=== PATIENT | male | born 1960 | race Caucasian/White ===

== ENCOUNTER → 2016-06-09 | Outpatient (REF) | payer OTHER ==
[2016-06-09 14:21] LABS: ALBUMIN 4.2 GM/DL (3.2-5.2); ALBUMIN/GLOBULIN RATIO 1.24 (1.00-1.93); ALKALINE PHOSPHATASE 84 U/L (45-117); ALT/SGPT 25 U/L (12-78); ANION GAP 10 MEQ/L (8-16); AST/SGOT 21 U/L (15-37); BILIRUBIN,TOTAL 0.5 MG/DL (0.2-1.0); BLOOD UREA NITROGEN 13 MG/DL (7-18); CALCIUM LEVEL 9.3 MG/DL (8.5-10.1); CARBON DIOXIDE LEVEL 25 MEQ/L (21-32); CHLORIDE LEVEL 104 MEQ/L (98-107); CREATININE FOR GFR 1.13 MG/DL (0.70-1.30); GLOMERULAR FILTRATION RATE > 60.0 (>56); GLUCOSE, FASTING 159 MG/DL (70-105); POTASSIUM SERUM 4.3 MEQ/L (3.5-5.1); SODIUM LEVEL 139 MEQ/L (136-145); TOTAL PROTEIN 7.6 GM/DL (6.4-8.2)
[2016-06-11 00:07] LABS: %CD3+CD4+CD8+ 0.9 % (Not Estab.); %CD3+CD4+CD8- 29.5 % (Not Estab.); %CD3+CD4-CD8+ 48.8 % (Not Estab.); %CD3+CD4-CD8- 0.6 % (Not Estab.); ABS CD3+CD4+CD8+ 28 /uL (Not Estab.); ABS CD3+CD4+CD8- 915 /uL (Not Estab.); ABS CD3+CD4-CD8+ 1513 /uL (Not Estab.); ABS CD3+CD4-CD8- 19 /uL (Not Estab.); Eosinophils 1 % (.); HCT 42.4 % (37.5-51.0); HGB 14.7 g/dL (12.6-17.7); Monocytes 9 % (.); Neutrophils 58 % (.)
== END ==
LOC: M SFHCPLAZ 11:32
PROVIDERS: ATTEND Internal Medicine Infectious Disease
DX: B20 Human immunodeficiency virus [HIV] disease (principal); Z11.3 Encounter for screening for infections with a predominantly sexual mode of transmission; E11.9 Type 2 diabetes mellitus without complications

== ENCOUNTER → 2016-09-08 | Outpatient (REF) | payer OTHER ==
[2016-09-08 12:07] LABS: ANION GAP 9 MEQ/L (8-16); BLOOD UREA NITROGEN 13 MG/DL (7-18); CALCIUM LEVEL 8.8 MG/DL (8.5-10.1); CARBON DIOXIDE LEVEL 26 MEQ/L (21-32); CHLORIDE LEVEL 102 MEQ/L (98-107); CREATININE FOR GFR 0.93 MG/DL (0.70-1.30); GLOMERULAR FILTRATION RATE > 60.0 (>56); GLUCOSE, FASTING 187 MG/DL (70-105); POTASSIUM SERUM 4.4 MEQ/L (3.5-5.1); SODIUM LEVEL 137 MEQ/L (136-145)
== END ==
LOC: M SFHCPLAZ 09:16
PROVIDERS: ATTEND Internal Medicine Infectious Disease
DX: E11.9 Type 2 diabetes mellitus without complications (principal)

== ENCOUNTER → 2017-03-15 | Outpatient (REF) | payer OTHER ==
[2017-03-15 13:44] LABS: ALBUMIN 4.1 GM/DL (3.2-5.2); ALKALINE PHOSPHATASE 89 U/L (45-117); ALT/SGPT 24 U/L (12-78); ANION GAP 5 MEQ/L (8-16); AST/SGOT 18 U/L (15-37); BILIRUBIN,TOTAL 0.4 MG/DL (0.2-1.0); BLOOD UREA NITROGEN 13 MG/DL (7-18); CALCIUM LEVEL 9.2 MG/DL (8.5-10.1); CARBON DIOXIDE LEVEL 28 MEQ/L (21-32); CHLORIDE LEVEL 102 MEQ/L (98-107); CHOLESTEROL LEVEL 128 MG/DL (<200); CREATININE FOR GFR 0.93 MG/DL (0.70-1.30); GLOMERULAR FILTRATION RATE > 60.0 (>56); GLUCOSE, FASTING 180 MG/DL (70-105); POTASSIUM SERUM 4.4 MEQ/L (3.5-5.1); SODIUM LEVEL 135 MEQ/L (136-145); TOTAL PROTEIN 8.2 GM/DL (6.4-8.2); TRIGLYCERIDES LEVEL 75 MG/DL (<150)
[2017-03-17 08:09] LABS: Eosinophils 1 % (Not Estab.); HCT 44.8 % (37.5-51.0); HEMATOLOGY COMMENTS Note: (.); Lyme Disease IgG/IgM Antibodie <0.91 ISR (0.00-0.90); Lyme Disease IgM Ab Quantitati <0.80 index (0.00-0.79); Monocytes 8 % (Not Estab.); Neutrophils 63 % (Not Estab.)
== END ==
LOC: M SFHCPLAZ 09:33
PROVIDERS: ATTEND Internal Medicine Infectious Disease
DX: B20 Human immunodeficiency virus [HIV] disease (principal); E11.9 Type 2 diabetes mellitus without complications; S80.861S Insect bite (nonvenomous), right lower leg, sequela

== ENCOUNTER → 2017-09-20 | Outpatient (REF) | payer OTHER ==
[2017-09-20 13:27] LABS: APPEARANCE, URINE CLEAR (CLEAR); BACTERIA, URINE AUTO NEGATIVE (NEGATIVE); BILIRUBIN, URINE AUTO NEGATIVE (NEGATIVE); BLOOD, URINE BLOOD NEGATIVE (NEGATIVE); COLOR, URINE STRAW (YELLOW); GLUCOSE, URINE (UA) AUTO NEGATIVE (NEGATIVE); KETONE, URINE AUTO NEGATIVE (NEGATIVE); LEUKOCYTE ESTERASE, URINE AUTO NEGATIVE (NEGATIVE); MUCUS, URINE SMALL (NEGATIVE); NITRITE, URINE AUTO NEGATIVE (NEGATIVE); PROTEIN, URINE AUTO NEGATIVE (NEGATIVE); RBC, URINE AUTO 4 /HPF (0-3); SPECIFIC GRAVITY URINE AUTO 1.006 (1.002-1.035); SQUAMOUS EPITHELIAL CELL UR AU 0 /HPF (0-6); UROBILINOGEN, URINE AUTO 0.2 mg/dL (0.0-2.0); WBC, URINE AUTO 1 /HPF (0-3)
[2017-09-20 14:27] LABS: ERYTHROCYTE SEDIMENTATION RATE 3 mm/hr (0-20)
[2017-09-20 15:33] LABS: ESTIMATED AVERAGE GLUCOSE 166 MG/DL (60-110); HEMOGLOBIN A1c 7.4 %
[2017-09-20 15:47] LABS: HEPATITIS C VIRUS ABY INDEX < 0.0 INDEX (<0.8)
[2017-09-20 16:02] LABS: ALBUMIN 4.2 GM/DL (3.2-5.2); ALBUMIN/GLOBULIN RATIO 0.98 (1.00-1.93); ALKALINE PHOSPHATASE 77 U/L (45-117); ALT/SGPT 23 U/L (12-78); ANION GAP 7 MEQ/L (8-16); AST/SGOT 20 U/L (7-37); BILIRUBIN,TOTAL 0.3 MG/DL (0.2-1.0); BLOOD UREA NITROGEN 17 MG/DL (7-18); C REACTIVE PROTEIN QUANTITATIV < 0.30 MG/DL (0.00-0.30); CALCIUM LEVEL 9.1 MG/DL (8.5-10.1); CARBON DIOXIDE LEVEL 24 MEQ/L (21-32); CHLORIDE LEVEL 107 MEQ/L (98-107); GLOMERULAR FILTRATION RATE > 60.0 (>56); GLUCOSE, FASTING 130 MG/DL (70-100); POTASSIUM SERUM 4.7 MEQ/L (3.5-5.1); RHEUMATOID FACTOR QUANT < 10.0 IU/ML (<15.0); SODIUM LEVEL 138 MEQ/L (136-145); TOTAL PROTEIN 8.5 GM/DL (6.4-8.2)
[2017-09-20 16:19] LABS: CHLAMYDIA DNA AMPLIFICATION NEGATIVE (NEGATIVE); GC DNA AMPLIFICATION NEGATIVE (NEGATIVE)
[2017-09-22 14:16] LABS: ANA (HEP2) Negative (.); HIV-1 RNA PCR QUANT 2 LC550285 <20 copies/mL (.)
[2017-09-23 00:08] LABS: QUANTIFERON GOLD TB Negative (Negative); TB Test (QFT) Antigen 0.03 IU/mL (.); TB Test (QFT) Antigen Minus Ni 0.01 IU/mL (.); TB Test (QFT) Nil 0.02 IU/mL (.)
== END ==
LOC: M SFHCPLAZ 11:00
DX: B20 Human immunodeficiency virus [HIV] disease (principal); E11.9 Type 2 diabetes mellitus without complications; M25.50 Pain in unspecified joint

== ENCOUNTER → 2017-11-24 | Outpatient (CLI) | payer OTHER | LOC: M RAD 07:54 | DX: I71.4 Abdominal aortic aneurysm, without rupture (principal) | CPT/HCPCS: 76775 ==

== ENCOUNTER → 2018-03-24 | Outpatient (REF) | payer OTHER ==
[2018-03-24 13:45] LABS: ALBUMIN 3.9 GM/DL (3.2-5.2); ALBUMIN/GLOBULIN RATIO 1.03 (1.00-1.93); ALKALINE PHOSPHATASE 76 U/L (45-117); ALT/SGPT 20 U/L (12-78); ANION GAP 10 MEQ/L (8-16); AST/SGOT 16 U/L (7-37); BILIRUBIN,TOTAL 0.3 MG/DL (0.2-1.0); BLOOD UREA NITROGEN 16 MG/DL (7-18); CALCIUM LEVEL 8.5 MG/DL (8.5-10.1); CARBON DIOXIDE LEVEL 24 MEQ/L (21-32); CHLORIDE LEVEL 103 MEQ/L (98-107); CHOLESTEROL LEVEL 108 MG/DL (<200); CHOLESTEROL RISK RATIO 2.571 (<5); CREATININE FOR GFR 1.01 MG/DL (0.70-1.30); GLOMERULAR FILTRATION RATE > 60.0 (>56); GLUCOSE, FASTING 175 MG/DL (70-100); HDL CHOLESTEROL 42 MG/DL (>40); LDL CHOLESTEROL 50 MG/DL (<100); NON-HDL-C 66 MG/DL; POTASSIUM SERUM 4.9 MEQ/L (3.5-5.1); SODIUM LEVEL 137 MEQ/L (136-145); TOTAL PROTEIN 7.7 GM/DL (6.4-8.2); TRIGLYCERIDES LEVEL 80 MG/DL (<150)
[2018-03-24 13:50] LABS: ESTIMATED AVERAGE GLUCOSE 148 MG/DL (60-110); HEMOGLOBIN A1c 6.8 %
[2018-03-24 14:21] LABS: MALB URINE SIEMENS 11.1 MG/L
[2018-03-24 14:32] LABS: MAU/CREAT RATIO 6.5 MCG/MG (0.0-30.0)
[2018-03-29 00:08] LABS: %CD4 Pos Lymphs 30.4 % (30.8-58.5); ABS Basophils 0.1 x10E3/uL (0.0-0.2); ABS Eosinophils 0.1 x10E3/uL (0.0-0.4); ABS Lymphs 2.6 x10E3/uL (0.7-3.1); ABS Monocytes 0.8 x10E3/uL (0.1-0.9); ABS Neutophils 5.9 x10E3/uL (1.4-7.0); Abs CD4 Helper 790 /uL (359-1519); Abs CD8 Suppres 1196 /uL (109-897); CD4/CD8 Ratio 0.66 (0.92-3.72); Eosinophils 1 % (Not Estab.); HCT 42.3 % (37.5-51.0); HGB 14.1 g/dL (13.0-17.7); HIV-1 RNA PCR QUANT 2 LC550285 <20 copies/mL (.); Immature Grans 0 % (Not Estab.); Lyme Disease IgG/IgM Antibodie <0.91 ISR (0.00-0.90); Lyme Disease IgM Ab Quantitati <0.80 index (0.00-0.79); Lymphocytes 27 % (Not Estab.); MCH 30.6 pg (26.6-33.0); MCHC 33.3 g/dL (31.5-35.7); MCV 92 fL (79-97); Monocytes 9 % (Not Estab.); Neutrophils 62 % (Not Estab.); Platelets 145 x10E3/uL (150-379); RBC 4.61 x10E6/uL (4.14-5.80); WBC 9.4 x10E3/uL (3.4-10.8)
== END ==
LOC: M SFHCPLAZ 10:12
DX: B20 Human immunodeficiency virus [HIV] disease (principal); E11.9 Type 2 diabetes mellitus without complications; E78.00 Pure hypercholesterolemia, unspecified; M25.552 Pain in left hip

== ENCOUNTER → 2018-08-02 | Outpatient (REF) | payer OTHER ==
[2018-08-02 12:37] LABS: APPEARANCE, URINE CLEAR (CLEAR); BACTERIA, URINE AUTO NEGATIVE (NEGATIVE); BILIRUBIN, URINE AUTO NEGATIVE (NEGATIVE); BLOOD, URINE BLOOD NEGATIVE (NEGATIVE); COLOR, URINE YELLOW (YELLOW); GLUCOSE, URINE (UA) AUTO 1+ mg/dL (NEGATIVE); KETONE, URINE AUTO NEGATIVE (NEGATIVE); LEUKOCYTE ESTERASE, URINE AUTO NEGATIVE (NEGATIVE); MUCUS, URINE SMALL (NEGATIVE); NITRITE, URINE AUTO NEGATIVE (NEGATIVE); PROTEIN, URINE AUTO NEGATIVE (NEGATIVE); RBC, URINE AUTO 1 /HPF (0-3); SPECIFIC GRAVITY URINE AUTO 1.009 (1.002-1.035); SQUAMOUS EPITHELIAL CELL UR AU 0 /HPF (0-6); UROBILINOGEN, URINE AUTO 0.2 mg/dL (0.0-2.0); WBC, URINE AUTO 0 /HPF (0-3)
[2018-08-02 13:13] LABS: AMPHETAMINES URINE REFLEX NEGATIVE (NEGATIVE); BARBITURATES URINE REFLEX NEGATIVE (NEGATIVE); BENZODIAZEPINES URINE REFLEX NEGATIVE (NEGATIVE); COCAINE METABOLITE URINE REFLE NEGATIVE (NEGATIVE); CREATININE, URINE 56.6 MG/DL; MALB URINE SIEMENS 5.2 MG/L; MAU/CREAT RATIO 9.1 MCG/MG (0.0-30.0); METHADONE URINE REFLEX NEGATIVE (NEGATIVE); OPIATES URINE REFLEX NEGATIVE (NEGATIVE); PHENCYCLIDINE URINE REFLEX NEGATIVE (NEGATIVE)
[2018-08-02 13:23] LABS: CANNABINOIDS URINE REFLEX PENDING CONFIRMATION (NEGATIVE)
[2018-08-02 13:46] LABS: ALBUMIN 4.3 GM/DL (3.2-5.2); ALT/SGPT 33 U/L (12-78); BILIRUBIN,TOTAL 0.3 MG/DL (0.2-1.0); BLOOD UREA NITROGEN 16 MG/DL (7-18); CALCIUM LEVEL 9.2 MG/DL (8.5-10.1); CARBON DIOXIDE LEVEL 24 MEQ/L (21-32); CHLORIDE LEVEL 105 MEQ/L (98-107); CHOLESTEROL LEVEL 122 MG/DL (<200); CHOLESTEROL RISK RATIO 3.128 (<5); CREATININE FOR GFR 1.24 MG/DL (0.70-1.30); GLOMERULAR FILTRATION RATE > 60.0 (>56); GLUCOSE, FASTING 213 MG/DL (70-100); HDL CHOLESTEROL 39 MG/DL (>40); LDL CHOLESTEROL 63 MG/DL (<100); NON-HDL-C 83 MG/DL; POTASSIUM SERUM 4.6 MEQ/L (3.5-5.1); SODIUM LEVEL 136 MEQ/L (136-145); TRIGLYCERIDES LEVEL 101 MG/DL (<150)
[2018-08-02 14:29] LABS: HEMOGLOBIN A1c 8.3 %
[2018-08-02 14:50] LABS: CHLAMYDIA DNA AMPLIFICATION NEGATIVE (NEGATIVE); GC DNA AMPLIFICATION NEGATIVE (NEGATIVE)
[2018-08-05 00:08] LABS: % CD8 Pos Lymph 40.1 % (12.0-35.5); %CD4 Pos Lymphs 33.8 % (30.8-58.5); ABS Lymphs 1.9 x10E3/uL (0.7-3.1); ABS Monocytes 0.6 x10E3/uL (0.1-0.9); ABS Neutophils 5.8 x10E3/uL (1.4-7.0); Abs CD4 Helper 642 /uL (359-1519); Abs CD8 Suppres 762 /uL (109-897); CD4/CD8 Ratio 0.84 (0.92-3.72); Eosinophils 1 % (Not Estab.); HCT 41.8 % (37.5-51.0); HGB 14.2 g/dL (13.0-17.7); HIV-1 RNA PCR QUANT 2 LC550285 <20 copies/mL (.); Immature Grans 0 % (Not Estab.); Lymphocytes 23 % (Not Estab.); MCH 30.7 pg (26.6-33.0); MCV 90 fL (79-97); Monocytes 7 % (Not Estab.); Neutrophils 68 % (Not Estab.); Platelets 129 x10E3/uL (150-379); RBC 4.63 x10E6/uL (4.14-5.80); RDW 14.7 % (12.3-15.4); WBC 8.4 x10E3/uL (3.4-10.8)
== END ==
LOC: M LABDRAW1 09:38
PROVIDERS: ATTEND Internal Medicine Infectious Disease
DX: B20 Human immunodeficiency virus [HIV] disease (principal); E11.9 Type 2 diabetes mellitus without complications; M19.011 Primary osteoarthritis, right shoulder
CPT/HCPCS: 36415; 80053; 80061; 80307; 81001; 82043; 83036; 86360; 86480; 86780; 87491; 87536; 87591; G0480

== ENCOUNTER → 2018-12-01 | Outpatient (REF) | payer OTHER ==
[2018-12-01 12:50] LABS: ALBUMIN 4.1 GM/DL (3.2-5.2); ALT/SGPT 23 U/L (12-78); BILIRUBIN,TOTAL 0.4 MG/DL (0.2-1.0); BLOOD UREA NITROGEN 15 MG/DL (7-18); CALCIUM LEVEL 9.2 MG/DL (8.5-10.1); CARBON DIOXIDE LEVEL 24 MEQ/L (21-32); CHLORIDE LEVEL 106 MEQ/L (98-107); CREATININE FOR GFR 1.21 MG/DL (0.70-1.30); GLOMERULAR FILTRATION RATE > 60.0 (>56); GLUCOSE, FASTING 193 MG/DL (70-100); POTASSIUM SERUM 4.4 MEQ/L (3.5-5.1); SODIUM LEVEL 137 MEQ/L (136-145); TOTAL PROTEIN 8.1 GM/DL (6.4-8.2)
[2018-12-01 13:25] LABS: HEMOGLOBIN A1c 7.4 %
[2018-12-06 00:06] LABS: % CD8 Pos Lymph 49.9 % (12.0-35.5); %CD4 Pos Lymphs 27.5 % (30.8-58.5); ABS Basophils 0.1 x10E3/uL (0.0-0.2); ABS Eosinophils 0.1 x10E3/uL (0.0-0.4); ABS Monocytes 0.7 x10E3/uL (0.1-0.9); Abs CD4 Helper 825 /uL (359-1519); Abs CD8 Suppres 1497 /uL (109-897); CD4/CD8 Ratio 0.55 (0.92-3.72); Eosinophils 1 % (Not Estab.); HCT 42.7 % (37.5-51.0); HGB 14.1 g/dL (13.0-17.7); HIV-1 RNA PCR QUANT 2 LC550285 <20 copies/mL (.); Immature Grans 0 % (Not Estab.); Lymphocytes 27 % (Not Estab.); MCH 30.7 pg (26.6-33.0); MCV 93 fL (79-97); Monocytes 7 % (Not Estab.); Neutrophils 64 % (Not Estab.); Platelets 171 x10E3/uL (150-450); RDW 15.2 % (12.3-15.4)
== END ==
LOC: M SFHCPLAZ 10:06
PROVIDERS: ATTEND Internal Medicine Infectious Disease
DX: B20 Human immunodeficiency virus [HIV] disease (principal); E11.9 Type 2 diabetes mellitus without complications

== ENCOUNTER → 2019-04-03 | Outpatient (REF) | payer OTHER ==
[2019-04-03 12:33] LABS: ALBUMIN 3.7 GM/DL (3.2-5.2); ALT/SGPT 29 U/L (12-78); BILIRUBIN,TOTAL 0.5 MG/DL (0.2-1.0); BLOOD UREA NITROGEN 10 MG/DL (7-18); CALCIUM LEVEL 8.7 MG/DL (8.5-10.1); CARBON DIOXIDE LEVEL 25 MEQ/L (21-32); CHLORIDE LEVEL 106 MEQ/L (98-107); CREATININE FOR GFR 1.07 MG/DL (0.70-1.30); GLOMERULAR FILTRATION RATE > 60.0 (>56); GLUCOSE, FASTING 209 MG/DL (70-100); POTASSIUM SERUM 4.5 MEQ/L (3.5-5.1); SODIUM LEVEL 137 MEQ/L (136-145); TOTAL PROTEIN 7.3 GM/DL (6.4-8.2)
[2019-04-03 13:49] LABS: HEMOGLOBIN A1c 7.6 %
[2019-04-06 00:07] LABS: % CD8 Pos Lymph 49.5 % (12.0-35.5); %CD4 Pos Lymphs 30.2 % (30.8-58.5); ABS Eosinophils 0.1 x10E3/uL (0.0-0.4); ABS Lymphs 2.2 x10E3/uL (0.7-3.1); ABS Monocytes 0.9 x10E3/uL (0.1-0.9); ABS Neutophils 4.3 x10E3/uL (1.4-7.0); Abs CD4 Helper 664 /uL (359-1519); Abs CD8 Suppres 1089 /uL (109-897); CD4/CD8 Ratio 0.61 (0.92-3.72); Eosinophils 2 % (Not Estab.); HGB 13.7 g/dL (13.0-17.7); HIV-1 RNA PCR QUANT 2 LC550285 230 copies/mL (.); HIV-1 RNA PCR QUANT 3 LC550285 2.362 (.); Immature Grans 0 % (Not Estab.); Lymphocytes 29 % (Not Estab.); MCH 29.9 pg (26.6-33.0); MCHC 33.4 g/dL (31.5-35.7); MCV 90 fL (79-97); Monocytes 12 % (Not Estab.); Neutrophils 57 % (Not Estab.); Platelets 149 x10E3/uL (150-450); RBC 4.58 x10E6/uL (4.14-5.80); RDW 14.5 % (12.3-15.4); WBC 7.6 x10E3/uL (3.4-10.8)
== END ==
LOC: M SFHCPLAZ 09:34
PROVIDERS: ATTEND Internal Medicine Infectious Disease
DX: B20 Human immunodeficiency virus [HIV] disease (principal); E11.9 Type 2 diabetes mellitus without complications

== ENCOUNTER → 2019-07-31 | Outpatient (REF) | payer OTHER ==
[2019-07-31 12:48] LABS: APPEARANCE, URINE CLEAR (CLEAR); BACTERIA, URINE AUTO NEGATIVE (NEGATIVE); BILIRUBIN, URINE AUTO NEGATIVE (NEGATIVE); BLOOD, URINE BLOOD NEGATIVE (NEGATIVE); COLOR, URINE YELLOW (YELLOW); GLUCOSE, URINE (UA) AUTO 3+ mg/dL (NEGATIVE); KETONE, URINE AUTO NEGATIVE (NEGATIVE); LEUKOCYTE ESTERASE, URINE AUTO NEGATIVE (NEGATIVE); NITRITE, URINE AUTO NEGATIVE (NEGATIVE); PROTEIN, URINE AUTO NEGATIVE (NEGATIVE); RBC, URINE AUTO 3 /HPF (0-3); SQUAMOUS EPITHELIAL CELL UR AU 0 /HPF (0-6); UROBILINOGEN, URINE AUTO 0.2 mg/dL (0.0-2.0); WBC, URINE AUTO 0 /HPF (0-3)
[2019-07-31 13:02] LABS: HEMOGLOBIN A1c 8.1 %
[2019-07-31 13:14] LABS: CREATININE, URINE 54.4 MG/DL; MALB URINE SIEMENS < 5.0 MG/L; MAU/CREAT RATIO 9.1 MCG/MG (0.0-30.0)
[2019-07-31 13:32] LABS: ALT/SGPT 25 U/L (12-78); BILIRUBIN,TOTAL 0.3 MG/DL (0.2-1.0); BLOOD UREA NITROGEN 19 MG/DL (7-18); CALCIUM LEVEL 9.5 MG/DL (8.5-10.1); CARBON DIOXIDE LEVEL 27 MEQ/L (21-32); CHLORIDE LEVEL 103 MEQ/L (98-107); CHOLESTEROL LEVEL 103 MG/DL (<200); CREATININE FOR GFR 1.16 MG/DL (0.70-1.30); GLOMERULAR FILTRATION RATE > 60.0 (>56); GLUCOSE, FASTING 268 MG/DL (70-100); HDL CHOLESTEROL 37 MG/DL (>40); NON-HDL-C 66 MG/DL; POTASSIUM SERUM 4.5 MEQ/L (3.5-5.1); SODIUM LEVEL 135 MEQ/L (136-145); TRIGLYCERIDES LEVEL 58 MG/DL (<150)
[2019-07-31 13:33] LABS: ALBUMIN 4.2 GM/DL (3.2-5.2); CHOLESTEROL RISK RATIO 2.783 (<5); FREE T4 1.11 NG/DL (0.76-1.46); LDL CHOLESTEROL 54 MG/DL (<100); TOTAL PROTEIN 7.4 GM/DL (6.4-8.2)
[2019-07-31 13:55] LABS: HEPATITIS C VIRUS ABY INDEX < 0.0 INDEX (<0.8)
[2019-07-31 14:05] LABS: CHLAMYDIA DNA AMPLIFICATION NEGATIVE (NEGATIVE); GC DNA AMPLIFICATION NEGATIVE (NEGATIVE)
== END ==
LOC: M SFHCPLAZ 09:24
PROVIDERS: ATTEND Internal Medicine Infectious Disease
DX: B20 Human immunodeficiency virus [HIV] disease (principal); E11.9 Type 2 diabetes mellitus without complications; R63.4 Abnormal weight loss

== ENCOUNTER → 2019-11-27 | Outpatient (REF) | payer OTHER ==
[2019-11-27 16:05] LABS: ALBUMIN 4.2 GM/DL (3.2-5.2); ALT/SGPT 24 U/L (12-78); BILIRUBIN,TOTAL 0.5 MG/DL (0.2-1.0); BLOOD UREA NITROGEN 19 MG/DL (7-18); CALCIUM LEVEL 9.9 MG/DL (8.5-10.1); CARBON DIOXIDE LEVEL 32 MEQ/L (21-32); CHLORIDE LEVEL 101 MEQ/L (98-107); CHOLESTEROL LEVEL 117 MG/DL (<200); CREATININE FOR GFR 1.14 MG/DL (0.70-1.30); GLOMERULAR FILTRATION RATE > 60.0 (>56); GLUCOSE, FASTING 168 MG/DL (70-100); HDL CHOLESTEROL 39 MG/DL (>40); LDL CHOLESTEROL 60 MG/DL (<100); NON-HDL-C 78 MG/DL; SODIUM LEVEL 133 MEQ/L (136-145); TOTAL PROTEIN 8.4 GM/DL (6.4-8.2); TRIGLYCERIDES LEVEL 89 MG/DL (<150)
[2019-11-27 16:15] LABS: HEMOGLOBIN A1c 7.8 %
[2019-11-27 16:32] LABS: CREATININE, URINE 61.9 MG/DL; MALB URINE SIEMENS < 5.0 MG/L
[2019-12-01 18:08] LABS: % CD8 Pos Lymph 54.3 % (12.0-35.5); %CD4 Pos Lymphs 26.9 % (30.8-58.5); ABS Basophils 0.1 x10E3/uL (0.0-0.2); ABS Eosinophils 0.1 x10E3/uL (0.0-0.4); ABS Lymphs 3.1 x10E3/uL (0.7-3.1); ABS Monocytes 0.7 x10E3/uL (0.1-0.9); ABS Neutophils 6.8 x10E3/uL (1.4-7.0); Abs CD4 Helper 834 /uL (359-1519); Abs CD8 Suppres 1683 /uL (109-897); Eosinophils 1 % (Not Estab.); HCT 45.3 % (37.5-51.0); HGB 15.2 g/dL (13.0-17.7); HIV-1 RNA PCR QUANT 2 LC550285 110 copies/mL (.); HIV-1 RNA PCR QUANT 3 LC550285 2.041 (.); Immature Grans 0 % (Not Estab.); Lymphocytes 29 % (Not Estab.); MCH 30.6 pg (26.6-33.0); MCHC 33.6 g/dL (31.5-35.7); MCV 91 fL (79-97); Monocytes 6 % (Not Estab.); Neutrophils 63 % (Not Estab.); Platelets 203 x10E3/uL (150-450); RBC 4.97 x10E6/uL (4.14-5.80); RDW 13.1 % (11.6-15.4); WBC 10.7 x10E3/uL (3.4-10.8)
== END ==
LOC: M SFHCPLAZ 12:33
PROVIDERS: ATTEND Internal Medicine Infectious Disease
DX: B20 Human immunodeficiency virus [HIV] disease (principal); E11.9 Type 2 diabetes mellitus without complications

== ENCOUNTER → 2020-02-15 | Outpatient (CLI) | payer OTHER ==
[2020-02-15 14:20] LABS: HEMOGLOBIN A1c 7.4 %
[2020-02-15 14:27] LABS: ALBUMIN 3.8 GM/DL (3.2-5.2); ALT/SGPT 30 U/L (12-78); BILIRUBIN,TOTAL 0.3 MG/DL (0.2-1.0); BLOOD UREA NITROGEN 14 MG/DL (7-18); CALCIUM LEVEL 9.1 MG/DL (8.5-10.1); CARBON DIOXIDE LEVEL 24 MEQ/L (21-32); CHLORIDE LEVEL 110 MEQ/L (98-107); CHOLESTEROL LEVEL 112 MG/DL (<200); CHOLESTEROL RISK RATIO 2.666 (<5); CREATININE FOR GFR 1.03 MG/DL (0.70-1.30); GLOMERULAR FILTRATION RATE > 60.0 (>56); GLUCOSE, FASTING 145 MG/DL (70-100); HDL CHOLESTEROL 42 MG/DL (>40); LDL CHOLESTEROL 55 MG/DL (<100); NON-HDL-C 70 MG/DL; POTASSIUM SERUM 4.7 MEQ/L (3.5-5.1); SODIUM LEVEL 138 MEQ/L (136-145); TOTAL PROTEIN 7.6 GM/DL (6.4-8.2); TRIGLYCERIDES LEVEL 73 MG/DL (<150)
[2020-02-18 12:07] LABS: HIV-1 RNA PCR QUANT 3 LC550285 2.447 (.)
== END ==
LOC: M PLALAB 11:44
PROVIDERS: ATTEND Internal Medicine Infectious Disease
DX: B20 Human immunodeficiency virus [HIV] disease (principal); E11.9 Type 2 diabetes mellitus without complications

== ENCOUNTER → 2020-08-12 | Outpatient (REF) | payer OTHER ==
[2020-08-12 15:40] LABS: HEMOGLOBIN A1c 7.1 %
[2020-08-12 15:45] LABS: ALT/SGPT 23 U/L (12-78); BILIRUBIN,TOTAL 0.4 MG/DL (0.2-1.0); BLOOD UREA NITROGEN 14 MG/DL (7-18); CALCIUM LEVEL 9.1 MG/DL (8.5-10.1); CARBON DIOXIDE LEVEL 28 MEQ/L (21-32); CHLORIDE LEVEL 104 MEQ/L (98-107); CHOLESTEROL LEVEL 115 MG/DL (<200); CHOLESTEROL RISK RATIO 2.738 (<5); CREATININE FOR GFR 1.05 MG/DL (0.70-1.30); GLOMERULAR FILTRATION RATE > 60.0 (>56); GLUCOSE, FASTING 186 MG/DL (70-100); HDL CHOLESTEROL 42 MG/DL (>40); LDL CHOLESTEROL 58 MG/DL (<100); NON-HDL-C 73 MG/DL; POTASSIUM SERUM 4.3 MEQ/L (3.5-5.1); SODIUM LEVEL 136 MEQ/L (136-145); TOTAL PROTEIN 7.5 GM/DL (6.4-8.2); TRIGLYCERIDES LEVEL 74 MG/DL (<150)
[2020-08-12 15:49] LABS: AMPHETAMINES URINE REFLEX NEGATIVE (NEGATIVE); BARBITURATES URINE REFLEX NEGATIVE (NEGATIVE); BENZODIAZEPINES URINE REFLEX NEGATIVE (NEGATIVE); COCAINE METABOLITE URINE REFLE NEGATIVE (NEGATIVE); CREATININE, URINE 87.9 MG/DL; MALB URINE SIEMENS < 5.0 MG/L; MAU/CREAT RATIO 5.6 MCG/MG (0.0-30.0); METHADONE URINE REFLEX NEGATIVE (NEGATIVE); PHENCYCLIDINE URINE REFLEX NEGATIVE (NEGATIVE)
[2020-08-12 16:45] LABS: CANNABINOIDS URINE REFLEX PENDING CONFIRMATION (NEGATIVE); OPIATES URINE REFLEX PENDING CONFIRMATION (NEGATIVE)
== END ==
LOC: M SFHCPLAZ 13:09
PROVIDERS: ATTEND Internal Medicine Infectious Disease
DX: B20 Human immunodeficiency virus [HIV] disease (principal); E78.00 Pure hypercholesterolemia, unspecified; E11.9 Type 2 diabetes mellitus without complications; M51.36 Other intervertebral disc degeneration, lumbar region

== ENCOUNTER 2023-07-29 11:02 | Day surgery (SDC) | payer MEDICARE, OTHER ==
[~2023-07-29] VITALS: Ht 172.7 cm; Wt 67.9 kg
[~2023-07-29 11:02] MED LIST: ATOR40TA75 PO; BAYE81TA10 PO; BIKT1TAB PO; ERGO500029 PO; FARX1TAB3 PO; GABA800T4 PO; LISI10TA22 PO; MAGN500T2 PO; METF10004 PO; OMEP40CA5 PO; OXYC1TAB23 PO; THERTAB52 PO; VARE1TAB2 PO
[2023-07-29] MEDS: NS 1,000 ML IV ONE (12:23)
[2023-07-29] MEDS ORDERED: propofoL 200 MG/20 ML VIAL As Ordered ONE (13:02)
[2023-07-29] MEDS ORDERED: LIDOCAINE 2% 100MG/5ML SDV (FOR ANES.) As Ordered ONE (13:03)
[2023-07-29 14:01] VITALS: TEMP 99
[2023-07-29 14:23] VITALS: BP 166/79; O2SAT 97
== END 2023-07-29 14:36 | disposition home or self-care (01) ==
LOC: M OPP 11:02
PROVIDERS: ATTEND Internal Medicine Gastroenterology
DX: Z12.11 Encounter for screening for malignant neoplasm of colon (principal); K64.4 Residual hemorrhoidal skin tags; K64.8 Other hemorrhoids; K22.89 Other specified disease of esophagus; K31.89 Other diseases of stomach and duodenum; K29.70 Gastritis, unspecified, without bleeding; R13.10 Dysphagia, unspecified; F17.200 Nicotine dependence, unspecified, uncomplicated; Z79.02 Long term (current) use of antithrombotics/antiplatelets; Z79.1 Long term (current) use of non-steroidal anti-inflammatories (NSAID); Z79.51 Long term (current) use of inhaled steroids; Z79.84 Long term (current) use of oral hypoglycemic drugs; Z79.891 Long term (current) use of opiate analgesic
CPT/HCPCS: 43239; 88305; G0121

== ENCOUNTER → 2023-11-22 | Outpatient (CLI) | payer MEDICARE, OTHER ==
[2023-11-22 13:11] LABS: ALKALINE PHOSPHATASE 95 U/L (46-116); ALT/SGPT 19 U/L (7.0-40); AST/SGOT 9 U/L (<34); BILIRUBIN,TOTAL 0.4 MG/DL (0.3-1.2); BLOOD UREA NITROGEN 14 MG/DL (9-23); CALCIUM LEVEL 9.8 MG/DL (8.3-10.6); CARBON DIOXIDE LEVEL 31 MMOL/L (20-31); CHLORIDE LEVEL 107 MMOL/L (98-107); CREATININE FOR GFR 0.88 MG/DL (0.70-1.30); GLOMERULAR FILTRATION RATE > 60.0 (>49); GLUCOSE, FASTING 177 MG/DL (74-106); POTASSIUM SERUM 5.1 MMOL/L (3.5-5.1); SODIUM LEVEL 141 MMOL/L (136-145); TOTAL PROTEIN 7.6 G/DL (5.7-8.2)
[2023-11-23 10:09] LABS: % CD4+ LYMPHS 27.5 % (30.8-58.5); ABSOLUTE CD4 HELPER 660 /uL (359-1519); BASOPHILS 1 % (Not Estab.); BASOPHILS ABSOLUTE 0.1 x10E3/uL (0.0-0.2); EOSINOPHILS 1 % (Not Estab.); EOSINOPHILS ABSOLUTE 0.1 x10E3/uL (0.0-0.4); HCT 45.4 % (37.5-51.0); HGB 14.7 g/dL (13.0-17.7); LYMPHOCYTES 21 % (Not Estab.); LYMPHOCYTES ABSOLUTE 2.4 x10E3/uL (0.7-3.1); MCH 28.8 pg (26.6-33.0); MCHC 32.4 g/dL (31.5-35.7); MCV 89 fL (79-97); MONOCYTES 7 % (Not Estab.); MONOCYTES ABSOLUTE 0.8 x10E3/uL (0.1-0.9); NEUTROPHILS 70 % (Not Estab.); NEUTROPHILS ABSOLUTE 8.2 x10E3/uL (1.4-7.0); PLT 121 x10E3/uL (150-450); RDW 14.9 % (11.6-15.4); WBC 11.7 x10E3/uL (3.4-10.8)
== END ==
LOC: M PLALAB 11:27
PROVIDERS: ATTEND Internal Medicine Infectious Disease
DX: B20 Human immunodeficiency virus [HIV] disease (principal)

== ENCOUNTER → 2024-09-26 | Outpatient (REF) | payer MEDICARE, MEDICAID ==
[~2024-09-26] MED LIST changes: +GABA-1635 PO; -GABA800T4 PO
== END ==
LOC: M SFHCPLAZ 13:32
PROVIDERS: ATTEND Internal Medicine Infectious Disease
DX: B20 Human immunodeficiency virus [HIV] disease (principal); M51.360 Other intervertebral disc degeneration, lumbar region with discogenic back pain only

== ENCOUNTER → 2024-09-26 | Outpatient (CLI) | payer MEDICARE, MEDICAID ==
[2024-09-26 15:49] LABS: ALBUMIN 3.9 G/DL (3.2-5.2); ALKALINE PHOSPHATASE 98 U/L (40-129); ALT/SGPT 17 U/L (7.0-40); AST/SGOT 9 U/L (<34); BILIRUBIN,TOTAL 0.2 MG/DL (0.3-1.2); BLOOD UREA NITROGEN 16 MG/DL (9-23); CALCIUM LEVEL 9.3 MG/DL (8.3-10.6); CARBON DIOXIDE LEVEL 28 MMOL/L (20-31); CHLORIDE LEVEL 101 MMOL/L (98-107); CREATININE FOR GFR 0.95 MG/DL (0.70-1.30); GLOMERULAR FILTRATION RATE 89.9 (>49); GLUCOSE, FASTING 215 MG/DL (74-106); POTASSIUM SERUM 4.8 MMOL/L (3.5-5.1); SODIUM LEVEL 136 MMOL/L (136-145); TOTAL PROTEIN 7.9 G/DL (5.7-8.2)
[2024-09-26 16:29] LABS: HEPATITIS C VIRUS ABY INDEX 0.03 INDEX (<0.8)
== END ==
LOC: M PLALAB 13:54
PROVIDERS: ATTEND Internal Medicine Infectious Disease
DX: B20 Human immunodeficiency virus [HIV] disease (principal); M51.360 Other intervertebral disc degeneration, lumbar region with discogenic back pain only; Z11.3 Encounter for screening for infections with a predominantly sexual mode of transmission; Z72.89 Other problems related to lifestyle

== ENCOUNTER → 2025-04-19 | Outpatient (CLI) | payer MEDICARE, MEDICAID ==
[2025-04-19 15:27] LABS: APPEARANCE, URINE CLEAR (CLEAR); BACTERIA, URINE AUTO NEGATIVE (NEGATIVE); BILIRUBIN, URINE AUTO NEGATIVE (NEGATIVE); BLOOD, URINE BLOOD NEGATIVE (NEGATIVE); GLUCOSE, URINE (UA) AUTO 3+ mg/dL (NEGATIVE); KETONE, URINE AUTO NEGATIVE (NEGATIVE); LEUKOCYTE ESTERASE, URINE AUTO NEGATIVE (NEGATIVE); MUCUS, URINE SMALL (NEGATIVE); NITRITE, URINE AUTO NEGATIVE (NEGATIVE); PROTEIN, URINE AUTO NEGATIVE (NEGATIVE); RBC, URINE AUTO 0 /HPF (0-3); SPECIFIC GRAVITY URINE AUTO 1.024 (1.002-1.035); SQUAMOUS EPITHELIAL CELL UR AU 0 /HPF (0-6); UROBILINOGEN, URINE AUTO 0.2 mg/dL (0.0-2.0); WBC, URINE AUTO 0 /HPF (0-3)
[2025-04-19 15:29] LABS: ALT/SGPT 9 U/L (7.0-40); AST/SGOT 13 U/L (<34); CALCIUM LEVEL 9.1 MG/DL (8.3-10.6); CARBON DIOXIDE LEVEL 29 MMOL/L (20-31); CHLORIDE LEVEL 104 MMOL/L (98-107); CREATININE FOR GFR 0.93 MG/DL (0.70-1.30); GLOMERULAR FILTRATION RATE > 90.0 (>49); POTASSIUM SERUM 4.7 MMOL/L (3.5-5.1); SODIUM LEVEL 138 MMOL/L (136-145)
[2025-04-19 15:42] LABS: AMPHETAMINES URINE REFLEX NEGATIVE (NEGATIVE); BARBITURATES URINE REFLEX NEGATIVE (NEGATIVE); COCAINE METABOLITE URINE REFLE NEGATIVE (NEGATIVE); METHADONE URINE REFLEX NEGATIVE (NEGATIVE); PHENCYCLIDINE URINE REFLEX NEGATIVE (NEGATIVE)
[2025-04-19 15:43] LABS: BENZODIAZEPINES URINE REFLEX NEGATIVE (NEGATIVE)
[2025-04-19 16:30] LABS: ESTIMATED AVERAGE GLUCOSE 255.0 MG/DL (60-110)
[2025-04-19 17:04] LABS: CANNABINOIDS URINE REFLEX PENDING CONFIRMATION (NEGATIVE); OPIATES URINE REFLEX PENDING CONFIRMATION (NEGATIVE)
[2025-04-21 16:37] LABS: % CD4 30 % (30-61); %CD8 51 % (12-42); ABSOLUTE CD4 CELLS 837 cells/uL (490-1740); ABSOLUTE CD8 CELLS 1418 cells/uL (180-1170); ABSOLUTE LYMPHOCYTES 2796 cells/uL (850-3900); CD4 CD8 RATIO 0.59 (0.86-5.00)
[2025-04-22 21:44] LABS: HIV-1 RNA PCR QUANT 2 56 copies/mL (NOT DETECTED); HIV-1 RNA PCR QUANT 3 1.75 (NOT DETECTED)
[2025-04-23 01:02] LABS: GABAPENTIN 5.5 mcg/mL
[2025-04-26 09:07] LABS: Carboxy THC Conf, MS, UR 296 ng/mL (Cutoff=10)
== END ==
LOC: M PLALAB 12:24
PROVIDERS: ATTEND Internal Medicine Infectious Disease
DX: B20 Human immunodeficiency virus [HIV] disease (principal); Z79.899 Other long term (current) drug therapy